=== PATIENT | male | born 1985 | race Caucasian/White ===

== ENCOUNTER 2020-08-27 08:49 | Emergency (ER) | payer OTHER, MEDICAID, SELFPAY ==
[2020-08-27 09:07] VITALS: BP 142/73; PULSE 75; RESP 22; TEMP 36.1; O2SAT 97; BMI 44.6
--- NOTE | 2020-08-27 09:41 | ED_ITS ---
HPI - General Adult General Chief complaint: Upper Respiratory Symptoms Stated complaint: Runny nose,sneeze and cough Time Seen by Provider: 08/27/20 09:29 Source: patient Mode of arrival: Ambulatory Limitations: no limitations History of Present Illness HPI narrative: This is a 35-year-old male who comes with complaint of approximately 24 hours of nasal congestion, cough which has been productive although patient states he did not evaluated it, feeling hot and warm alternatively, and nasal drainage. Patient states he has not had any documented fevers at home. He denies myalgias. He denies any chest pain or shortness of breath he describes his symptoms more as upper respiratory. He denies any nausea or vomiting. No abdominal pain. No diarrhea or constipation. He has not had any urinary symptoms. He has not had any rashes or skin changes. No dizziness, no headache or sinus pressure. Patient denies any medical problems otherwise. He denies any prior surgeries. He does use tobacco daily, he in gests by vaping. He does drink alcohol, denies illicit. He has not tried any [id number] medications for his symptoms. He denies any known sick contacts. He has not had seasonal allergies in the past Related Data Home Medications Medication Instructions Recorded Confirmed amoxicillin 875 mg PO BID #0 08/18/17 Previous Rx's Medication Instructions Recorded benzonatate [Tessalon Perles] 100 mg PO TID PRN #20 cap 08/27/20 Allergies Allergy/AdvReac Type Severity Reaction Status Date / Time amoxicillin [AMOXICILLIN] Allergy Intermediate Verified 08/27/20 09:12 Review of Systems Review of Systems ROS Unobtainable: All systems reviewed & are unremarkable except as noted in HPI and below Patient History Social History Smoking Status: Current every day smoker Smoking Status: Current every day smoker tobacco type: vaping alcohol intake frequency: 0-2 drinks per day Substance Use Type: does not use Exam Narrative Exam Narrative: GEN: Obese male, alert and oriented x 3, patient appears to be in mild distress. When patient talks he does sound congested nasally. HEENT: Atraumatic, pupils are equal round reactive to light, extraocular movements are intact. No facial swelling. HEART: Regular rate and rhythm without murmur, clicks, rubs. LUNGS:Lungs clear to auscultation, no wheezes, rales, crackles, chest moves symmetrically ABD:bowel sounds normal, soft, non-tender, no guarding, rebound, rigidity, no masses noted, no hepatosplenomegaly MSCL: Non-tender, no muscle atrophy, muscles strength 5/5 upper and lower extremities, full range of motion, normal gait NEURO:CN 2-12 intact SKIN: No rash, erythema or other skin changes appreciated. Initial Vital Signs Initial Vital Signs: Vital Signs Temperature 97.0 F L 08/27/20 09:07 Pulse Rate 75 08/27/20 09:07 Respiratory Rate 22 08/27/20 09:07 Blood Pressure 142/73 H 08/27/20 09:07 Pulse Oximetry 97 08/27/20 09:07 Course Orders Ordered: ED Orders 08/27/20 09:13 COVID19 Stat Discontinued Medications Benzonatate (Benzonatate 100 Mg Capsule) 100 mg PO NOW ONE Stop: 08/27/20 09:42 Last Admin: 08/27/20 09:52 Dose: 100 mg Documented by: ULISSES Vital Signs Vital signs: Vital Signs - 8 hr 08/27/20 09:07 08/27/20 10:13 Temperature 97.0 F L Pulse Rate 75 Respiratory Rate 22 Blood Pressure 142/73 H 137/82 Pulse Oximetry 97 Medical Decision Making Lab Data Labs: Lab Results 08/27/20 Range/Units 09:13 SARS-CoV-2 (PCR) Negative (Negative) MDM Narrative Medical decision making narrative: This is a 35-year-old male with less than 24 hours of symptoms. Patient comes for evaluation and COVID testing. Patient did request something for cough. COVID swab is negative we did discuss it may be a mild upper respiratory infection but cannot completely rule out COVID infection as his onset of symptoms have been less than 24 hours and if he continues to have symptoms or worsening symptoms would recommend repeat testing in the next several days. Discharge Plan Departure Patient Disposition: Home Clinical Impression: Upper respiratory infection Activity Restrictions/Additional Instructions: Follow up if your symptoms are not improving in the next 7-10 days. For COVID test today is negative as you have only had symptoms for about 24 hours sometimes the test can be negative but if it is too early in the symptom onset so I would recommend repeat testing in the next several days if you are not having improvement or have concerns. You can set up testing through the respiratory/walk-in clinic with an appointment. You may take Tylenol and/or ibuprofen as needed for fevers, muscle aches or generalized discomfort You may use Tessalon Perles every 8 hours as needed for cough You may try [id number]-[id number] cough and cold medication as well. There are many options available at local pharmacies and the grocery store Return for persistent fevers, lightheadedness or passing out, new chest pain or shortness of breath persistent vomiting, new facial swelling, coughing up blood, swelling of her extremities, new rash or other new or concerning symptoms. Prescriptions: New benzonatate [Tessalon Perles] 100 mg capsule 100 mg PO TID PRN (Reason: cough) Qty: 20 RF: 0 No Action amoxicillin 875 MG tablet 875 mg PO BID Qty: 0 RF: 0
[2020-08-27] MEDS: BENZONATATE 100 MG CAPSULE PO (09:52)
[2020-08-27 09:57] LABS: COVID19 -Nasal RAPID Negative (Negative)
[2020-08-27 10:13] VITALS: BP 137/82
== END 2020-08-27 10:18 | disposition home or self-care (01) ==
PROVIDERS: Emergency Provider Emergency Medicine; Family Provider Family Medicine
DX: J06.9 Acute upper respiratory infection, unspecified (principal); Z20.822 Contact with and (suspected) exposure to COVID-19
CPT/HCPCS: 87635; 99281; 99283; C9803